=== PATIENT | female | born 2000 | race Hispanic/Latino ===

== ENCOUNTER 2021-09-15 14:53 | Emergency (ER) | payer MEDICAID, OTHER ==
[~2021-09-15] VITALS: Ht 165.1 cm; Wt 54.4 kg
[2021-09-15] MEDS ORDERED: KETOROLAC 60 MG VIAL (30MG/ML) IM ONE (16:00)
[2021-09-15] MEDS ORDERED: CYCLOBENZAPRINE HCL 10 MG TABLET PO ONE (16:00)
[2021-09-15] MEDS ORDERED: CYCLOBENZAPRINE HCL 10 MG TABLET ONE (17:09)
[2021-09-15] MEDS ORDERED: KETOROLAC 60 MG VIAL (30MG/ML) ONE (17:09)
[2021-09-15] MEDS ORDERED: IBUP-1552 PO (17:16)
[2021-09-15] MEDS ORDERED: CYCL10TA16 PO (17:16)
[2021-09-15 17:40] VITALS: BP 126/82
== END 2021-09-15 17:41 | disposition home or self-care (01) ==
LOC: EDH 14:53
DX: S16.1XXA Strain of muscle, fascia and tendon at neck level, initial encounter (principal); S39.012A Strain of muscle, fascia and tendon of lower back, initial encounter; S20.219A Contusion of unspecified front wall of thorax, initial encounter; Z79.1 Long term (current) use of non-steroidal anti-inflammatories (NSAID); V49.49XA Driver injured in collision with other motor vehicles in traffic accident, initial encounter; Y93.89 Activity, other specified; Y92.89 Other specified places as the place of occurrence of the external cause; Y99.8 Other external cause status
CPT/HCPCS: 70450; 71250; 72125; 72131; 81025; 96372; 99284; J1885